=== PATIENT | female | born 1980 | race Caucasian/White ===

== ENCOUNTER 2022-08-19 16:10 | Emergency (ER) | payer OTHER, MEDICAID, SELFPAY ==
[2022-08-19 17:06] VITALS: BP 132/81; PULSE 113; RESP 15; TEMP 37.7; O2SAT 98; BMI 29.9
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
== END 2022-08-19 17:34 | disposition home or self-care (01) ==
PROVIDERS: Emergency Provider Student in an Organized Health Care Education/Training Program
DX: Z76.0 Encounter for issue of repeat prescription (principal); F41.9 Anxiety disorder, unspecified
CPT/HCPCS: 99281

== ENCOUNTER 2022-09-20 15:04 | Emergency (ER) | payer OTHER, MEDICAID, SELFPAY ==
[2022-09-20 15:07] VITALS: BP 129/62; PULSE 100; RESP 20; TEMP 36.8; O2SAT 98; BMI 25.2
--- NOTE | 2022-09-20 15:17 | ED_ITS ---
HPI - Recheck/Abnormal Lab/Rx General Chief Complaint: Recheck/Abnormal Lab/Rx Stated Complaint: MEDICATION REFILL Time Seen by Provider: 09/20/22 15:17 Source: patient Mode of arrival: Ambulatory History of Present Illness HPI narrative: Patient is a 42-year-old female. Has a history of ADHD. Is on Vyvanse for this. Also has a history of hypothyroid. Is on Synthroid for this. She is new to the area. She has a new psychiatrist and primary doctor but can not see them until the middle of next month so she is here for medication refill Related Data Previous Rx's Medication Instructions Recorded lisdexamfetamine 70 mg capsule 70 mg PO DAILY ADHD #30 caps 08/19/22 (Vyvanse) levothyroxine 300 mcg tablet 300 mcg PO DAILY #90 tabs 09/20/22 (Synthroid) lisdexamfetamine 70 mg capsule 70 mg PO QAM #30 caps 09/20/22 (Vyvanse) Allergies Allergy/AdvReac Type Severity Reaction Status Date / Time No Known Drug Allergies Allergy Verified 08/19/22 17:11 Review of Systems Review of Systems Narrative: Patient is here for medication refill. She has no specific symptoms. Patient History Medical History ADHD Hypothyroid Social History Smoking Status: Former smoker Smoking Status: Former smoker alcohol intake frequency: holidays/special occasions only Substance Use Type: does not use Exam Initial Vital Signs Initial Vital Signs: Vital Signs Temperature 98.2 F 09/20/22 15:07 Pulse Rate 100 H 09/20/22 15:07 Respiratory Rate 20 09/20/22 15:07 Blood Pressure 129/62 09/20/22 15:07 Pulse Oximetry 98 09/20/22 15:07 Oxygen Delivery Method Room Air 09/20/22 15:07 Resp Effort & Inspection: normal respiratory effort Cardio Rate: regular rate Neuro General: patient alert, patient awake and moves all extremities Course Vital Signs Vital signs: Vital Signs - 8 hr 09/20/22 15:07 Temperature 98.2 F Pulse Rate 100 H Respiratory Rate 20 Blood Pressure 129/62 Pulse Oximetry 98 Oxygen Delivery Method Room Air MDM - Recheck/Abnormal Lab/Rx MDM Narrative Medical decision making narrative: I did refill her Synthroid and Vyvanse. The Synthroid was electronically transmitted to [facility] but however given the occasional difficulty of having Vyvanse and. She was given a printed prescription for this. Discharge Plan Departure Patient Disposition: Home Clinical Impression: Encounter for medication refill Activity Restrictions/Additional Instructions: The Synthroid/levothyroxine was electronically transmitted to [facility] here in [place]. It appears that Vyvanse sometimes is difficult to find in stock so you were given a printed prescription for this. It is important that you follow-up with your primary doctor. Prescriptions: New levothyroxine [Synthroid] 300 mcg tablet 300 mcg PO DAILY Qty: 90 2RF Vyvanse 70 mg capsule 70 mg PO QAM Qty: 30 0RF No Action Vyvanse 70 mg capsule 70 mg PO DAILY Qty: 30 0RF Stand Alone Forms: Patient Portal/API
== END 2022-09-20 15:23 | disposition home or self-care (01) ==
PROVIDERS: Emergency Provider Emergency Medicine
DX: Z76.0 Encounter for issue of repeat prescription (principal)
CPT/HCPCS: 99281

== ENCOUNTER 2022-10-11 21:55 | Emergency (ER) | payer OTHER, MEDICAID, SELFPAY ==
[2022-10-11 22:28] VITALS: BP 129/68; PULSE 98; RESP 16; TEMP 36.7; O2SAT 98; BMI 25.0
--- NOTE | 2022-10-11 22:37 | ED.RECABL ---
HPI - Recheck/Abnormal Lab/Rx General Chief Complaint: Recheck/Abnormal Lab/Rx Stated Complaint: Needs Rx refill Time Seen by Provider: 10/11/22 22:11 Source: patient Mode of arrival: Ambulatory History of Present Illness HPI narrative: 42-year-old female former smoker with history of anxiety presents requesting a refill of her Xanax. She states that she takes it as needed in his feeling anxious as she has started a new job in cares for multiple children. She moved here about 5 months ago and has yet to establish a primary care provider. She is seen in the walk-in clinic in the emergency department previously and had other medications refilled but not Xanax. She denies suicidal or homicidal ideation. She denies any chest pain or shortness of breath. Related Data Previous Rx's Medication Instructions Recorded lisdexamfetamine 70 mg capsule 70 mg PO DAILY ADHD #30 caps 08/19/22 (Vyvanse) levothyroxine 300 mcg tablet 300 mcg PO DAILY #90 tabs 09/20/22 (Synthroid) lisdexamfetamine 70 mg capsule 70 mg PO QAM #30 caps 09/20/22 (Vyvanse) Allergies Allergy/AdvReac Type Severity Reaction Status Date / Time No Known Drug Allergies Allergy Verified 08/19/22 17:11 Review of Systems Review of Systems Narrative: GENERAL: Denies chills, fatigue, malaise, fever, sweats. HEENT: Denies sinus pain, ear pain, sore throat, difficulty swallowing, dizziness. RESPIRATORY: Denies dyspnea, cough, wheezing, hemoptysis, sputum. CARDIOVASCULAR: Denies chest pain, palpitations, orthopnea, edema, GASTROINTESTINAL: Denies nausea, vomiting, abdominal pain, diarrhea, constipation, melena. : Denies dysuria, frequency, incontinence, hematuria, urinary retention. MUSCULOSKELETAL: denies weakness, joint pain, or bony pain SKIN: Denies rash, skin lesions, or other NEUROLOGIC: Denies weakness, headache, numbness, change in speech, confusion, seizures, incoordination. PSYCHIATRIC: See HPI 12 point review of systems is negative except for those stated above Patient History Medical History ADHD Hypothyroid Social History Smoking Status: Former smoker Smoking Status: Former smoker alcohol intake frequency: holidays/special occasions only Substance Use Type: does not use Exam Narrative Exam Narrative: GEN: AOx3 and in mild distress EYES: Pupils are equal, round, and reactive to light and accommodation. Extraoccular muscles are intact bilaterally. There is no subconjunctival hemorrhage or exudate. CHEST: Lungs are clear to auscultation bilaterally and free of wheezes, rales, or rhonchi. Heart rate is regular rhythm, there are no murmurs, clicks, rubs, or gallops. There is no chest wall tenderness. ABD: Abdomen is soft and nontender. There is no guarding or rebound. Bowel sounds are normal in all 4 quadrants. There is no mass or organomegaly. EXT: Full painless ROM of all extremities with no loss of sensation or strength. SKIN: Warm, pink, and dry. No erythema or rash Initial Vital Signs Initial Vital Signs: Vital Signs Temperature 98.0 F 10/11/22 22:28 Pulse Rate 98 H 10/11/22 22:28 Respiratory Rate 16 10/11/22 22:28 Blood Pressure 129/68 10/11/22 22:28 Pulse Oximetry 98 10/11/22 22:28 Oxygen Delivery Method Room Air 10/11/22 22:28 Course Orders Ordered: Discontinued Medications Lorazepam (Lorazepam 0.5 Mg Tablet) 1 mg PO NOW ONE Stop: 10/11/22 22:42 Last Admin: 10/11/22 22:58 Dose: 1 mg Documented By: LEOBARDO Vital Signs Vital signs: Vital Signs - 8 hr 10/11/22 22:58 Temperature 97.4 F L Pulse Rate 80 Respiratory Rate 16 Blood Pressure 128/74 Pulse Oximetry 98 Oxygen Delivery Method Room Air MDM - Recheck/Abnormal Lab/Rx MDM Narrative Medical decision making narrative: Patient requesting refill of Xanax. I discussed with her that I am happy to send her home with a dose of Ativan tonight but we would not typically refill medication such as this in the emergency department and she is encouraged to establish with a PCP Discharge Plan Departure Patient Disposition: Home Clinical Impression: Encounter for medication refill, Anxiety Instructions: DI for Anxiety -- Adult Activity Restrictions/Additional Instructions: There is no evidence of an emergent or life threatening illness at this time, but follow up with your doctor in 1-2 days is recommended nonetheless to continue to rule out serious underlying causes of your symptoms. Please call the office for an appointment. Please return to the Emergency Department for any worsening or persistent symptoms. Please take medications as directed. As we discussed we are unable to refill Xanax in the emergency department. It will be important for you to establish with a primary care provider to help address this in an ongoing fashion moving forward. Please call [phone] tomorrow, let them know that you were seen in the emergency department and we would like you seen in follow-up to establish care Prescriptions: No Action Vyvanse 70 mg capsule 70 mg PO DAILY Qty: 30 0RF levothyroxine [Synthroid] 300 mcg tablet 300 mcg PO DAILY Qty: 90 2RF Vyvanse 70 mg capsule 70 mg PO QAM Qty: 30 0RF Stand Alone Forms: Patient Portal/API
[2022-10-11 22:58] VITALS: BP 128/74; PULSE 80; RESP 16; TEMP 36.3; O2SAT 98
[2022-10-11] MEDS: LORazepam 0.5 MG TABLET 1 MG PO (22:58)
== END 2022-10-11 22:59 | disposition home or self-care (01) ==
PROVIDERS: Emergency Provider Emergency Medicine
DX: Z76.0 Encounter for issue of repeat prescription (principal); F41.9 Anxiety disorder, unspecified
CPT/HCPCS: 99283

== ENCOUNTER 2022-10-19 22:00 | Emergency (ER) | payer OTHER, MEDICAID, SELFPAY ==
[2022-10-19 22:11] VITALS: BP 123/57; PULSE 103; RESP 16; TEMP 36.6; O2SAT 99; BMI 25.0
--- NOTE | 2022-10-20 01:26 | ED_ITS ---
HPI - Recheck/Abnormal Lab/Rx General Chief Complaint: Recheck/Abnormal Lab/Rx Stated Complaint: wants medication refills Time Seen by Provider: 10/20/22 01:26 Source: patient Mode of arrival: Ambulatory History of Present Illness HPI narrative: 42-year-old woman with a self-described ?very severe? case of ADD. She has 1 Vyvanse left an appointment with her physician scheduled in 2 weeks and comes in this evening for a refill of the Vyvanse. Related Data Previous Rx's Medication Instructions Recorded lisdexamfetamine 70 mg capsule 70 mg PO DAILY ADHD #30 caps 08/19/22 (Vyvanse) levothyroxine 300 mcg tablet 300 mcg PO DAILY #90 tabs 09/20/22 (Synthroid) lisdexamfetamine 70 mg capsule 70 mg PO QAM #30 caps 09/20/22 (Vyvanse) Allergies Allergy/AdvReac Type Severity Reaction Status Date / Time No Known Drug Allergies Allergy Verified 08/19/22 17:11 Patient History Medical History ADHD Hypothyroid Social History Smoking Status: Former smoker Smoking Status: Former smoker alcohol intake frequency: holidays/special occasions only Substance Use Type: does not use Exam Initial Vital Signs Initial Vital Signs: Vital Signs Temperature 97.8 F 10/19/22 22:11 Pulse Rate 103 H 10/19/22 22:11 Respiratory Rate 16 10/19/22 22:11 Blood Pressure 123/57 L 10/19/22 22:11 Pulse Oximetry 99 10/19/22 22:11 Oxygen Delivery Method Room Air 10/19/22 22:11 Medical screening exam is done. General: Alert, in no acute distress Respiratory: Able to speak in full sentences, no obvious respiratory distress Neurologic: Grossly intact no obvious asymmetries or abnormalities Psych: appropriate insight and affect, cooperative Course Vital Signs Vital signs: Vital Signs - 8 hr 10/19/22 22:11 Temperature 97.8 F Pulse Rate 103 H Respiratory Rate 16 Blood Pressure 123/57 L Pulse Oximetry 99 Oxygen Delivery Method Room Air MDM - Recheck/Abnormal Lab/Rx MDM Narrative Medical decision making narrative: CC: Requests refill of her Vyvanse Complicating co-morbidities: Anxiety Data collected from: patient, Social determinants of health that may influence the patients condition: Difficult social situation with 2 autistic children Medical records reviewed: She was seen on October 11 requesting Ativan prescription Differential considered: Anxiety Exam documented above, pertinent findings include: No acute medical emergency identified Discussion: Due to significant volumes this evening, the patient has been waiting for 3 hours. She is called back multiple times to see how long it was going to be. Wait time for her estimated is an additional 4 hours from now. Seeing that her request is for Vyvanse when out to speak with her in the waiting room. She states that she has 1 pill left, appointment with her doctor to discuss this prescription and fill it further on November 09 and she wants it filled now. Explained to her that we do not fill medications in the emergency department and specifically I am not comfortable filling a Vyvanse prescription. She clearly has dose lift and can contact her provider during the day to have the prescription expedite it if the provider feel that is appropriate. Patient was quite upset at the fact that she waited 3 hours, I explained to her that I was talking with her to save her an additional 4 hour wait for the same answer. While frustrated, she was able to walk out of the department without any additional difficulties Discharge Plan Departure Patient Disposition: Home Clinical Impression: ADHD Activity Restrictions/Additional Instructions: I am sorry that you have waited 3 hours this evening I am glad that you have a doctor who is following you for your ADHD and her anxiety. You have 1 more dose of your Vyvanse and you can [facility] during the day for your refill. This is not a medication that is appropriate to refill through the emergency department Prescriptions: No Action Vyvanse 70 mg capsule 70 mg PO DAILY Qty: 30 0RF levothyroxine [Synthroid] 300 mcg tablet 300 mcg PO DAILY Qty: 90 2RF Vyvanse 70 mg capsule 70 mg PO QAM Qty: 30 0RF Stand Alone Forms: Patient Portal/API
== END 2022-10-20 01:30 | disposition home or self-care (01) ==
PROVIDERS: Emergency Provider Emergency Medicine
DX: F90.9 Attention-deficit hyperactivity disorder, unspecified type (principal); Z76.0 Encounter for issue of repeat prescription
CPT/HCPCS: 99281

== ENCOUNTER 2022-11-01 11:43 | Emergency (ER) | payer OTHER, MEDICAID, SELFPAY ==
[2022-11-01 12:24] VITALS: BP 130/107; PULSE 117; RESP 19; TEMP 36.9; O2SAT 99; BMI 25.0
--- NOTE | 2022-11-01 12:42 | ED.RECABL ---
HPI - Recheck/Abnormal Lab/Rx <Telma Mills PA-C - Last Filed: 11/01/22 13:14> General Chief Complaint: Recheck/Abnormal Lab/Rx Stated Complaint: prescription refill Time Seen by Provider: 11/01/22 12:42 Source: patient Mode of arrival: Family Vehicle History of Present Illness HPI narrative: 42-year-old female with past medical history ADHD presents to the ED today requesting a prescription refill for Vyvanse and propranolol. Patient states that she is in the process of seeing a new psychiatrist, will not be able to see him until next month and is therefore requesting a refill on the Vyvanse and propranolol. Patient moved to the area a few months ago from [place], and her medications were prescribed by the doctor in [place]. Patient has been seen several times in our ED for medication refills. Patient denies chest pain, shortness of breath, fever, chills. Related Data Previous Rx's Medication Instructions Recorded lisdexamfetamine 70 mg capsule 70 mg PO DAILY ADHD #30 caps 08/19/22 (Vyvanse) levothyroxine 300 mcg tablet 300 mcg PO DAILY #90 tabs 09/20/22 (Synthroid) lisdexamfetamine 70 mg capsule 70 mg PO QAM #30 caps 09/20/22 (Vyvanse) Allergies Allergy/AdvReac Type Severity Reaction Status Date / Time No Known Drug Allergies Allergy Verified 11/01/22 12:24 Patient History <Telma Mills PA-C - Last Filed: 11/01/22 13:14> Medical History ADHD Hypothyroid Social History Smoking Status: Former smoker Smoking Status: Former smoker tobacco type: cigarettes alcohol intake frequency: 0-2 drinks per day Substance Use Type: does not use Exam <Telma Mills PA-C - Last Filed: 11/01/22 13:14> Narrative Exam Narrative: General:? Alert, in no acute distress Respiratory:? Able to speak in full sentences, no obvious respiratory distress Neurologic:? Grossly intact no obvious asymmetries or abnormalities Psych:? appropriate insight and affect, cooperative Initial Vital Signs Initial Vital Signs: Vital Signs Temperature 98.4 F 11/01/22 12:24 Pulse Rate 117 H 11/01/22 12:24 Respiratory Rate 19 11/01/22 12:24 Blood Pressure 130/107 H 11/01/22 12:24 Pulse Oximetry 99 11/01/22 12:24 Oxygen Delivery Method Room Air 11/01/22 12:24 <Manisha Roa DO - Last Filed: 11/03/22 07:39> Initial Vital Signs Initial Vital Signs: Vital Signs Temperature 98.4 F 11/01/22 12:24 Pulse Rate 117 H 11/01/22 12:24 Respiratory Rate 19 11/01/22 12:24 Blood Pressure 130/107 H 11/01/22 12:24 Pulse Oximetry 99 11/01/22 12:24 Oxygen Delivery Method Room Air 11/01/22 12:24 Course <Telma Mills PA-C - Last Filed: 11/01/22 13:14> Vital Signs Vital signs: Vital Signs - 8 hr 11/01/22 12:24 Temperature 98.4 F Pulse Rate 117 H Respiratory Rate 19 Blood Pressure 130/107 H Pulse Oximetry 99 Oxygen Delivery Method Room Air <Manisha Roa DO - Last Filed: 11/03/22 07:39> Vital Signs Vital signs: Vital Signs - 8 hr 11/01/22 12:24 Temperature 98.4 F Pulse Rate 117 H Respiratory Rate 19 Blood Pressure 130/107 H Pulse Oximetry 99 Oxygen Delivery Method Room Air MDM - Recheck/Abnormal Lab/Rx <Telma Mills PA-C - Last Filed: 11/01/22 13:14> MDM Narrative Medical decision making narrative: 42-year-old female with past medical history ADHD presents to the ED today requesting a prescription refill for Vyvanse and propranolol. Explained to patient that we are unable to refill these prescriptions in the emergency room, and that I am not comfortable prescribing medications such as Vyvanse. Patient was advised to follow-up with her prior doctor in [place] or the doctor with whom she is about to establish care with to request a prescription refill. Patient was frustrated, however was able to walk out of the department without any additional difficulties. Medical records reviewed: Yes Discharge Plan Departure Patient Disposition: Home Clinical Impression: Encounter for medication refill Activity Restrictions/Additional Instructions: You presented to the ED today with a request for a prescription refill for Vyvanse and propranolol. We do not routinely refill these types of prescriptions from the ED she, and we do not feel comfortable prescribing Vyvanse from the ED. It is important that you follow-up with your doctor as soon as possible so they can take care of these prescription refills. Prescriptions: No Action Vyvanse 70 mg capsule 70 mg PO DAILY Qty: 30 0RF levothyroxine [Synthroid] 300 mcg tablet 300 mcg PO DAILY Qty: 90 2RF Vyvanse 70 mg capsule 70 mg PO QAM Qty: 30 0RF Stand Alone Forms: Patient Portal/API <Manisha Roa, - Last Filed: 11/03/22 07:39> Cosign ED Attending Cosignature Attestation: I was immediately available in the department for consultation. Documentation has been reviewed.
--- NOTE | 2022-11-01 12:58 | PC.NURSE ---
Refusal by Telma LOPEZ to refill RX's. Pt being angry loud and belligerent with provider and staff. ambulated out of ED with steady gait.
== END 2022-11-01 13:00 | disposition home or self-care (01) ==
PROVIDERS: Emergency Provider Student in an Organized Health Care Education/Training Program
DX: Z76.0 Encounter for issue of repeat prescription (principal)
CPT/HCPCS: 99281